=== PATIENT | male | born 1965 | race African-American/Black ===

== ENCOUNTER → 2020-09-29 | Day surgery (SDC) | payer OTHER ==
[~2020-09-29] MED LIST: ACETAMINOPHEN650 M1 PEG; AMLODIPINE BESY10 MG PO; CEFTAZIDIME IV; CLONIDINE1 EAC1 TOP; CRESTOR10 MG PO; FERROUS SU15 MG/1 ML PEG; HYDRALAZINE HC100 MG PEG; LISINOPRIL40 MG PO; LITE COAT ASPI325 MG PEG; NEPRO PEG; NORCO 5-325 TA1 EACH PEG; NORVASC10 MG PEG; NOVOLOG100 UNIT/1; PREVACID30 MG PEG; SANTYL15 GM TOP; WATER BOTTLE1 EACH PEG; ZINC OXIDE30 GM TOP; [UNRECOGNIZED DRUG - OTHER] IV
[2020-09-29 10:05] VITALS: BP 98/64
== END | disposition home or self-care (01) ==
LOC: OR 07:46
PROVIDERS: ATTEND Internal Medicine Gastroenterology
DX: Z12.11 Encounter for screening for malignant neoplasm of colon (principal); Z86.010 Personal history of colon polyps; K64.8 Other hemorrhoids; G47.33 Obstructive sleep apnea (adult) (pediatric); I10 Essential (primary) hypertension; E78.5 Hyperlipidemia, unspecified; M54.9 Dorsalgia, unspecified; R00.1 Bradycardia, unspecified; I44.0 Atrioventricular block, first degree; Z01.810 Encounter for preprocedural cardiovascular examination; Z01.812 Encounter for preprocedural laboratory examination; Z20.822 Contact with and (suspected) exposure to COVID-19
CPT/HCPCS: 45378; 93005; U0002